=== PATIENT | female | born 1970 | race Caucasian/White ===

== ENCOUNTER 2016-12-22 18:17 | Emergency (ER) | payer MEDICARE ==
[2011-07-28 02:01] VITALS: BMI 29.2
== END 2016-12-22 20:30 | disposition home or self-care (01) ==
LOC: D.ER 18:17
DX: M79.662 Pain in left lower leg (principal); R22.42 Localized swelling, mass and lump, left lower limb; I10 Essential (primary) hypertension

== ENCOUNTER → 2017-08-05 12:48 | Outpatient (CLI) | payer MEDICARE ==
[2011-07-28 02:01] VITALS: BMI 29.2
== END | disposition home or self-care (01) ==
LOC: D.MRI 12:48
DX: M75.41 Impingement syndrome of right shoulder (principal)

== ENCOUNTER 2017-08-23 07:57 | Day surgery (SDC) | payer MEDICARE ==
[~2017-08-23] VITALS: Ht 167.6 cm; Wt 66.7 kg
--- NOTE | ~2017-08-23 | OP ---
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 PROCEDURES: 1. Arthroscopic superior labral repair, right shoulder. 2. Arthroscopic distal clavicle excision of the right shoulder. 3. Arthroscopic subacromial decompression, acromioplasty, and bursectomy. SURGEON: Charles Steve MD ANESTHESIA: General. INTRAOPERATIVE COMPLICATIONS: None. SUMMARY OF PATHOLOGIC FINDINGS: The patient was indeed found to have a bicipital labral lesion. This was examined intraoperatively and completely torn from the superior aspect of the labrum at the bicipital labral junction. The patient also had a type 3 acromion, downward sloping acromion with excoriation of the coracoacromial ligament, and grade IV chondromalacia of the distal clavicle. OPERATIVE SUMMARY IN DETAIL: After obtaining the appropriate preoperative orthopedic surgery consent as well as anesthetic consultation, evaluation and clearance, the patient was brought to the operating room and placed on the operating table in supine position. After general laryngeal mask was administered, the patient was placed in left lateral decubitus position. All pressure points were well padded to include down leg peroneal pad as well as axillary roll. The patient was held firmly to the operating table using the vacuum pack suction system. Right upper extremity was then prepped and draped in routine sterile fashion. Arm was held in the Arthrex traction boom at 30 degrees of forward flexion, 30 degrees of abduction with 10 pounds of traction laterally. Arthroscopy was established in the glenohumeral joint from a posterior portal. Anterior portal was established in the anterior safe interval. Diagnostic arthroscopy revealed the above findings. The superior aspect of the labrum was gently decorticated for reapproximation of the labrum. The Arthrex 2.9 mm PushLocks were used just anterior and posterior to the biceps to anchor the labrum down using a labral tape that was passed through the lassoes and doubled. This resulted in good reapproximation of the labrum. In the anterior aspect, there was a paucity of biceps tendonitis. Attention was then turned to the subacromial space. A combination of an arthroscopic resector and Colbert tissue ablation system was utilized to debride the undersurface of the acromion of all soft tissue elements and release the coracoacromial ligament. A 5-0 barrel bur was used to perform acromioplasty at the level of acromioclavicular joint and then through a separate arthroscopic anterior portal, distal clavicle was excised for 1-cm in direct arthroscopic visualization. Having completed this, the residual of the subacromial bursa was removed superiorly, anteriorly, laterally, and posteriorly. Having completed OPERATIVE REPORT [id number] BRIDGET CONNORS this, arthroscopy portals were closed in routine interrupted fashion using 4-0 Prolene. Sterile dressings were applied. The patient was awakened and taken to recovery in stable condition. All final needle and sponge counts were correct. TRANSINT:[id number] Voice Confirmation ID: [id number] DOCUMENT ID: [id number] EVI DYE, CHARLES CHAPMAN at 1000 CC: [id number] DICTATION DATE: 08/23/17 1323 MANAGER FINANCIAL: 08/23/17 1407 [facility] 08/23/17 [id number] [place] [address]
[2017-08-23] MEDS ORDERED: ZIAC 10-6.25 MG1 TAB PO (08:32)
[2017-08-23] MEDS ORDERED: XANAX0.5 MG PO (08:32)
[2017-08-23] MEDS ORDERED: HYDROCODONE-APA1 TAB PO (08:33)
[2017-08-23] MEDS ORDERED: ADDERALL 20 MG20 M1 PO (08:34)
[2017-08-23] MEDS ORDERED: BACLOFEN10 MG PO (08:35)
[2017-08-23 08:44] VITALS: BP 130/74; Ht 167.6 cm; Wt 66.7 kg
[2017-08-23 09:11] LABS: HEMOGLOBIN 14.6 g/dL (12-16); MCH 28.6 pg (26.0-34.0); MCHC 34.8 g/dL (31.0-37.0); MCV 82.4 fL (80.0-100.0); MEAN PLATELET VOLUME 10.3 fL (7.4-10.4); RBC 5.1 10x6/uL (4.00-5.40); RDW 13.9 % (11.5-14.5); WBC 6.4 10x3/uL (4.8-10.8)
[2017-08-23 09:33] LABS: CALC OSMOLALITY 279 mosm/kg (275-300); CALCIUM 8.9 mg/dL (8.5-10.1); CARBON DIOXIDE 25.3 mmol/L (21.0-32.0); CHLORIDE - SERUM 106 mmol/L (98-107); CREATININE - SERUM 0.8 mg/dL (0.6-1.3); GLUCOSE 99 mg/dL (74-106); POTASSIUM - SERUM 3.9 mmol/L (3.5-5.1); SODIUM 140 mmol/L (136-145); UREA NITROGEN 14 mg/dL (7-18); eGFR NON AFRICAN AMERICAN 81 mL/min (90-120)
[2017-08-23] MEDS ORDERED: TORADOL10 MG PO (11:22)
== END 2017-08-23 13:50 | disposition home or self-care (01) ==
LOC: D.OPS 07:57
PROVIDERS: Anesthesiology
DX: M75.41 Impingement syndrome of right shoulder (principal); M19.011 Primary osteoarthritis, right shoulder; F17.200 Nicotine dependence, unspecified, uncomplicated; I10 Essential (primary) hypertension; Z01.812 Encounter for preprocedural laboratory examination

== ENCOUNTER 2019-03-11 12:33 | Emergency (ER) | payer MEDICARE ==
[~2019-03-11] VITALS: Ht 167.6 cm; Wt 63.6 kg
[~2019-03-11 12:33] MED LIST: ADDERALL 20 MG20 M1 PO; BACLOFEN10 MG PO; HYDROCODONE-APA1 TAB PO; TORADOL10 MG PO; XANAX0.5 MG PO; ZIAC 10-6.25 MG1 TAB PO
[2019-03-11 12:35] VITALS: Ht 167.6 cm; Wt 63.6 kg
[2019-03-11 13:08] LABS: BASOPHILS 0.2 % (0-2); EOSINOPHILS 0.5 % (0-7); HEMATOCRIT 41.6 % (36.0-48.0); HEMOGLOBIN 14.8 g/dL (12-16); LYMPHOCYTES 27.6 % (15-50); MCHC 35.6 g/dL (31.0-37.0); MCV 78.8 fL (80.0-100.0); MEAN PLATELET VOLUME 9.8 fL (7.4-10.4); MONOCYTES 6.5 % (2-11); NEUTROPHILS 65.2 % (40-80); PLATELET COUNT 157 10x3/uL (130-400); RBC 5.28 10x6/uL (4.00-5.40); RDW 14.6 % (11.5-14.5); WBC 8.1 10x3/uL (4.8-10.8)
[2019-03-11 13:18] LABS: APTT 30.6 SECONDS (22.8-39.4); PROTIME 12.7 SECONDS (11.6-15.0)
[2019-03-11 13:22] LABS: ALKALINE PHOSPHATASE 55 U/L (46-116); ALT (SGPT) 17 U/L (10-68); CALC OSMOLALITY 278 mosm/kg (275-300); CALCIUM 9.3 mg/dL (8.5-10.1); CARBON DIOXIDE 24.8 mmol/L (21.0-32.0); CHLORIDE - SERUM 104 mmol/L (98-107); CREATININE - SERUM 0.8 mg/dL (0.6-1.3); GLUCOSE 106 mg/dL (74-106); PROTEIN - SERUM 7.3 g/dL (6.4-8.2); SODIUM 140 mmol/L (136-145); UREA NITROGEN 13 mg/dL (7-18); eGFR NON AFRICAN AMERICAN 80 mL/min (90-120)
[2019-03-11 13:34] LABS: CKMB 0.7 U/L (0.0-3.6); CREATINE KINASE 103 UL (21-215); MAGNESIUM - SERUM 1.8 mg/dL (1.8-2.4); TROPONIN-I < 0.017 ng/mL (0.000-0.060)
[2019-03-11] MEDS ORDERED: NORVASC10 MG PO (13:51)
[2019-03-11 13:59] VITALS: BP 145/78
== END 2019-03-11 14:00 | disposition home or self-care (01) ==
LOC: D.ER 12:33
PROVIDERS: Emergency Medicine
DX: I10 Essential (primary) hypertension (principal)